=== PATIENT | female | born 1940 | race Caucasian/White ===

== ENCOUNTER 2024-09-03 18:55 | Inpatient (IN) | payer MEDICARE, MEDICAID, SELFPAY ==
--- NOTE | ~2024-09-03 | XR_ITS ---
Portable chest x-ray Comparison: None Clinical History: Weakness Findings: There is probable focal retrocardiac airspace opacity. Right lung clear. No pleural effusi on or pneumothorax. Cardiomediastinal silhouette is unremarkable. Bones and soft tissues are unremar kable. Impression: Focal left lower lobe atelectasis versus pneumonia. Correlate clinically. Reviewed, dictated and finalized at [facility]. NEERING CONSULTANT Impression: Focal left lower lobe atelectasis versus pneumonia. Correlate clinically.
--- NOTE | ~2024-09-03 | CT_ITS ---
History: Fall PROCEDURE: CT head without contrast. COMPARISON: None TECHNIQUE: Axial imaging of the head performed from the skull base to the vertex without IV contrast. Sagittal a nd coronal reformations obtained. DLP: 681 mGy-cm FINDINGS: The ventricles are normal in size, shape and position. There is no mass, mass effect or midline shift. Decreased attenuation within the right occipital lobe, in the distribution of the posterior cerebral artery, suggesting prior cerebral infarction. Decreased attenuation within the periventricular white matter, most commonly seen in microvascular is chemic disease (in a patient of this age). There is no abnormal extra-axial fluid collection or acute or subacute intracranial hemorrhage. Mucoperiosteal thickening within the left maxillary sinus. Remaining paranasal sinuses are otherwise unremarkable. The mastoid air cells are well aerated. There acute displaced fractures within the overlying cranium. Impression: No acute intracranial hemorrhage or suspicious mass effect. Findings suggesting prior cerebral infarction within the distribution of the right posterior cerebral artery, as detailed above. Inflammatory sinus disease. Reviewed, dictated and finalized at location A. ER STACKER DRIVER Impression: No acute intracranial hemorrhage or suspicious mass effect. Findings suggesting prior cerebral infarction within the distribution of the ri ght posterior cerebral artery, as detailed above. Inflammatory sinus disease.
--- NOTE | ~2024-09-03 | MR_ITS ---
EXAMINATION: MR brain/brain stem wo/w con DATE: 09/04/2024 15:55 INDICATION: Cerebrovascular accident. TECHNIQUE: Magnetic resonance imaging (MRI) of the brain and brainstem was performed without and with 15 mL MultiHance intravenous contrast. COMPARISON: Head CT 09/03/2024 FINDINGS: There is an acute infarct in the right thalamus. There is an acute infarct involving the ri ght temporal occipital region. There is an old microhemorrhage in the left parietal lobe deep white m atter. There are scattered areas of nonspecific increased T2-weighted signal intensity in the cerebra l white matter, which is within normal limits for the patient's age. There is no abnormal mass lesion . The ventricles are normal in size. There are likely changes of ocular lens replacement surgeries. T here is mucosal thickening in left maxillary sinus. The mastoid air cells are normal. IMPRESSION: 1. Acute infarcts involving the right thalamus and right temporal occipital region. Reviewed, dictated and finalized at location A. MOSTAT MACHINE TENDER IMPRESSION: 1. Acute infarcts involving the right thalamus and right temporal occipital reg ion.
[2024-09-03 19:02] VITALS: BP 132/56; PULSE 56; RESP 16; TEMP 36.5; O2SAT 96
--- NOTE | 2024-09-03 21:33 | ED_ITS ---
HPI - Fall General Chief Complaint: Fall Stated Complaint: fall Time Seen by Provider: 09/03/24 21:22 History of Present Illness HPI Narrative: 84-year-old female presented to the emergency department for evaluation for having head injury. Daughter states the patient was evaluated yesterday at [facility] emergency department for generalized weakness. Daughter felt that the patient did have a shuffling gait yesterday and this is atypical for. Patient was then evaluated [facility] and was also discharged to home. Today the patient was supposed to be using a walker to ambulate but then had a ground level fall and struck her head on the toilet. Patient denies any loss of consci ousness. Patient does take Eliquis. Patient had initially been complaining of left arm pain but at time of evaluation patient denies any pain or complaint. Related Data Allergies Allergy/AdvReac Type Severity Reaction Status Date / Time hydrocodone Allergy Unknown Verified 09/04/24 01:28 Penicillins Allergy Unknown Verified 09/04/24 01:16 Review of Systems Review of Systems: All systems reviewed & are unremarkable except as noted in HPI and below Exam Narrative: APPEARANCE: Well appearing, no pain, no distress, well-nourished. HEAD: normocephalic, atraumatic. EYES: PERRLA/EOMI, conjunctivae clear. NOSE: Normal no drainage NECK: Supple. No adenopathy, no masses. RESPIRATORY: Airway patent, respirations nonlabored. Clear to auscultation bilaterally, no rales, rhonchi, wheezing. CARDIOVASCULAR: Regular rate and rhythm without murmurs rubs or gallops. ABDOMINAL: Soft, nontender, nondistended, normal bowel sounds MUSCULOSKELETAL: Moves all extremities. Strength/ROM intact, No edema, No calf tenderness. NEURO: Alert. Cranial nerves II through XII intact. Drift on the left. Good strength. Poor ambulation SKIN: Warm, dry. Normal Color Course Vital Signs Vital signs: Vital Signs Temperature 97.7 F 09/03/24 19:02 Pulse Rate 56 L 09/03/24 19:02 Respiratory Rate 16 09/03/24 19:02 Blood Pressure 132/56 L 09/03/24 19:02 Pulse Oximetry 96 09/03/24 19:02 Temperature 97.7 F 09/03/24 19:02 Pulse Rate 56 L 09/03/24 19:02 Respiratory Rate 16 09/03/24 19:02 Blood Pressure 132/56 L 09/03/24 19:02 Pulse Oximetry 96 09/03/24 19:02 MDM - Fall MDM Narrative Medical decision making narrative: 84-year-old female present to the emergency department for evaluation for a ground level fall. Patient is afebrile with no leukocytosis and hemoglobin of 12.0. Patient has no significant abnormalities on her CMP. Patient does have a creatinine of 1.4 but patient's baseline kidney function is not known. Patient was positive for nitrates positive for leukocyte esterase and high bacteria. Urine culture was ordered patient was started on antibiotics. Patient was neg ative for influenza RSV and for COVID. Head CT was negative for acute intracranial abnormality, but was concerning for cerebellar infarct. With patient's ambulation issues being acute of was concerned about subacute infarct. I discussed the case with Neurology and they will see the patient as consult. I discussed case with hospitalist patient was accepted for admission. Differential Diagnosis Differential diagnosis: Likely other (Head injury, urinary tract infection, COVID, RSV, influenza) Lab Data Attestation: I reviewed the patient's lab results. 09/03/24 22:05 09/03/24 22:05 Labs: Lab Results 09/03/24 09/03/24 09/03/24 Range/Units 22:05 22:29 23:56 WBC 9.4 (4.5-10.0) K/mm3 RBC 3.99 L (4.2-5.4) M/mm3 Hgb 12.0 (12.0-15.0) g/dL Hct 40.5 (37.0-47.0) % MCV 101.5 H (80-100) fl MCH 30.1 (26-34) pg MCHC 29.6 L (32-36) g/dl RDW 13.3 (11.5-14.5) % Plt Count 146 L (150-375) k/mm3 MPV 11.4 H (7.4-10.4) fl Immature Gran % (Auto) 0.4 (0-0.5) % Neut % (Auto) 63.1 (45.5-73.1) % Lymph % (Auto) 25.0 (18.3-44.2) % [place] % (Auto) 7.8 (2.6-8.5) % Eos % (Auto) 2.8 (0-4.4) % Baso % (Auto) 0.9 (0.2-1.2) % Lymph # (Auto) 2.34 (0.9-3.2) K/mm3 [place] # (Auto) 0.7 H (0.1-0.6) K/mm3 Eos # (Auto) 0.3 (0-0.3) K/mm3 Baso # (Auto) 0.1 (0.0-0.1) K/mm3 Abs Immat Gran (auto) 0.04 H (0.00-0.031) K/mm3 Absolute Neuts (auto) 5.9 (1.3-6.7) K/mm3 Absolute Nucleated RBC 0.000 (0.0-0.012) K/mm3 Nucleated RBC % 0.0 (0.0-0.2) % Platelet Estimate Adequate (Adequate) Hypochromasia 1+ Schistocytes None seen PT 18.5 H (11.1-14.7) Seconds INR 1.5 APTT 34.5 (22.3-36.8) Seconds Sodium 137 (137-145) mmol/L Potassium 4.8 (3.4-5.0) mmol/L Chloride 101 (98-107) mmol/L Carbon Dioxide 27 (22-30) mmol/L Anion Gap 9 (4-12) mmol/L BUN 47 H (7-17) mg/dL Creatinine 1.40 H (0.7-1.0) mg/dL Estim Creat Clear Calc Not Reportable Estimated GFR 36 L (59 - ) Glucose 132 H (65-110) mg/dL Calcium 9.1 (8.4-10.2) mg/dL Total Bilirubin 0.8 (0.2-1.3) mg/dL AST 35 (14-36) U/L ALT 26 (6-35) U/L Alkaline Phosphatase 79 (38-126) U/L Total Protein 8.0 (6.3-8.2) g/dL Albumin 3.9 (3.5-5.1) g/dL Urine Color Dark yellow (Yellow) Urine Appearance Clear (Clear) Urine pH 5.0 (5.0-9.0) Ur Specific [place] 1.023 (1.001-1.035) Urine Protein 1+ H (Negative) mg/dL Urine Glucose (UA) Negative (Negative) mg/dL Urine Ketones Trace H (Negative) mg/dL Ur Blood (Man) Negative (Negative) Urine Nitrate Positive H (Negative) Urine Bilirubin Negative (Negative) Urine Urobilinogen 0.2 (<2.0) mg/dL Add Ur Microanalysis Reviewed Leukocyte Esterase Rfl 1+ H (Negative) SHAHRZAD/UL Urine RBC 0-2 (0-2) /hpf Urine WBC 0-5 (0-3) /hpf Ur Squamous Epith Cells Occasional (Few) /hpf Urine Bacteria 4+ H /hpf Urine Casts 3-5 Influenza A (RT-PCR) Negative (Negative) Influenza B (RT-PCR) Negative (Negative) RSV (RT-PCR) Negative (Negative) SARS-CoV-2 RNA (RT-PCR) Negative (Negative) Imaging Data Radiologist's impression: Impressions Head CT 09/03/24 21:58 Impression: No acute intracranial hemorrhage or suspicious mass effect. Findings suggesting prior cerebral infarction within the distribution of the right posterior cerebral artery, as detailed above. Inflammatory sinus disease. Discharge Plan Discharge Clinical Impression: UTI (urinary tract infection), Gait disturbance, Cerebellar infarct Patient Disposition: Still a Patient Condition: Serious Follow-up/Referrals: PHYSICIAN NOT ON STAFF,NONSTAFF [Non-Staff] -
[2024-09-03 22:11] LABS: Basophils Absolute Auto 0.1 K/mm3 (0.0-0.1); Basophils Percent Auto 0.9 % (0.2-1.2); Eosinophils Absolute Auto 0.3 K/mm3 (0-0.3); Eosinophils Percent Auto 2.8 % (0-4.4); Hematocrit 40.5 % (37.0-47.0); Immature Granulocyte Absolute 0.04 K/mm3 (0.00-0.031); Immature Granulocyte Percent A 0.4 % (0-0.5); Lymphocytes Absolute Auto 2.34 K/mm3 (0.9-3.2); Mean Corpuscular HGB Conc 29.6 g/dl (32-36); Mean Corpuscular Hemoglobin 30.1 pg (26-34); Mean Corpuscular Volume 101.5 fl (80-100); Mean Platelet Volume 11.4 fl (7.4-10.4); Monocytes Absolute Auto 0.7 K/mm3 (0.1-0.6); Monocytes Percent Auto 7.8 % (2.6-8.5); Neutrophils Absolute Auto 5.9 K/mm3 (1.3-6.7); Neutrophils Percent Auto 63.1 % (45.5-73.1); Platelet Count Result 146 k/mm3 (150-375); Red Blood Count 3.99 M/mm3 (4.2-5.4); Red Cell Distribution Width 13.3 % (11.5-14.5); White Blood Count 9.4 K/mm3 (4.5-10.0)
[2024-09-03 22:23] LABS: Alanine Aminotransferase 26 U/L (6-35); Albumin Level 3.9 g/dL (3.5-5.1); Alkaline Phosphatase 79 U/L (38-126); Anion Gap 9 mmol/L (4-12); Aspartate Amino Transferase 35 U/L (14-36); Bilirubin,Total 0.8 mg/dL (0.2-1.3); Blood Urea Nitrogen 47 mg/dL (7-17); Calcium 9.1 mg/dL (8.4-10.2); Carbon Dioxide 27 mmol/L (22-30); Chloride 101 mmol/L (98-107); Estimated Glomerular Filt Rate 36; Glucose 132 mg/dL (65-110); Potassium 4.8 mmol/L (3.4-5.0); Sodium 137 mmol/L (137-145)
[2024-09-03 22:24] LABS: Hypochromasia 1+; Platelet Estimate Adequate (Adequate); Schistocytes None Seen
[2024-09-03 22:47] LABS: Influenza A QL RT-PCR Negative (Negative); Influenza B QL RT-PCR Negative (Negative); RSV RNA, RT-PCR Negative (Negative); SARS-CoV-2 RNA PCR Negative (Negative)
[2024-09-03 22:49] LABS: INR 1.5; Prothrombin Time 18.5 Seconds (11.1-14.7)
[2024-09-03 22:51] LABS: Partial Thromboplastin Time 34.5 Seconds (22.3-36.8)
[2024-09-04] VITALS (10 sets, daily range): BP systolic 103–165; BP diastolic 52–78; PULSE 62–85; RESP 16–20; TEMP 36.4–37; O2SAT 92–100; BMI 31.0
[2024-09-04 00:20] LABS: Add Urine Microscopic? YES; Appearance Urine Clear (Clear); Bacteria Urine 4+ /hpf; Bilirubin Urine Negative (Negative); Blood Urine Negative (Negative); Color Urine Dark Yellow (Yellow); Glucose Urine UA Negative (Negative); Ketones Urine Trace mg/dL (Negative); Leukocyte Esterase Ur 1+ LEU/UL (Negative); Need Manual Microscopic Reviewed; Nitrate Urine Positive (Negative); Protein Urine 1+ mg/dL (Negative); RBC Urine 0-2 /hpf (0-2); Specific Grav Ur 1.023 (1.001-1.035); Squamous Epithelial Cell Urine Occasional /hpf (Few); Urobilinogen Urine 0.2 mg/dL (<2.0); WBC Urine 0-5 /hpf (0-3)
--- NOTE | 2024-09-04 01:18 | PM.IMHP ---
H&P: HPI History of Present Illness Date/Time: 09/04/24 01:18 Chief Complaint: weakness Narrative: This is an 84-year-old female with past medical history significant for obesity, dementia, hypertension, Parkinson's. Patient was brought to the emergency room due to gait disturbance, generalized weakness. Most of the history has been obtained from daughter who is at bedside. Preliminary workup was significant for CT of the head with possible stroke of the right posterior cerebral artery. Patient was also found to have urinary tract infection. PROCEDURE: CT head without contrast. COMPARISON: None TECHNIQUE: Axial imaging of the head performed from the skull base to the vertex without IV contrast. Sagittal and coronal reformations obtained. DLP: 681 mGy-cm FINDINGS: The ventricles are normal in size, shape and position. There is no mass, mass effect or midline shift. Decreased attenuation within the right occipital lobe, in the distribution of the posterior cerebral artery, suggesting prior cerebral infarction. Decreased attenuation within the periventricular white matter, most commonly seen in microvascular ischemic disease (in a patient of this age). There is no abnormal extra-axial fluid collection or acute or subacute intracranial hemorrhage. Mucoperiosteal thickening within the left maxillary sinus. Remaining paranasal sinuses are otherwise unremarkable. The mastoid air cells are well aerated. There acute displaced fractures within the overlying cranium. Impression: No acute intracranial hemorrhage or suspicious mass effect. Findings suggesting prior cerebral infarction within the distribution of the right posterior cerebral artery, as detailed above. Inflammatory sinus disease. Review of Systems Review of Systems: ROS unobtainable: Yes unobtainable due to mental status PMFSH Social History Social History Smoking status: Former smoker Do You Feel Safe in your Home?: Yes Lack of Transportation: No Lack of Food: Never True Current Housing: I Have Housing Concerned About Future Housing: No Difficulty Paying Gas/Electric Bills: No Difficulty Paying for Meds: No Currently Unemployed: No Education: High School Diploma/GED Difficulty w/ Childcare or Family Care: No Spiritual care concerns: No Meds Home Medications and Allergies Home Medications Medication Instructions Recorded Confirmed Type PreserVision AREDS 1 tablet PO BID 09/04/24 09/04/24 History apixaban 5 mg tablet (Eliquis) 5 mg PO BID 09/04/24 09/04/24 History cyanocobalamin (vitamin B-12) 1,000 mcg DAILY 09/04/24 09/04/24 History 1,000 mcg/mL injection syringe donepezil 5 mg tablet (Aricept) 5 mg PO HS 09/04/24 09/04/24 History gabapentin 300 mg capsule 300 mg PO TID 09/04/24 09/04/24 History guaifenesin 100 mg/5 mL oral liquid 200 mg PO Q4H PRN Cough 09/04/24 09/04/24 History hydrochlorothiazide 12.5 mg tablet 12.5 mg PO DAILY 09/04/24 09/04/24 History ibuprofen 200 mg tablet 200 mg PO Q8H PRN Pain 09/04/24 09/04/24 History loperamide 2 mg tablet 2 mg PO Q4H PRN Diarrhea 09/04/24 09/04/24 History losartan 25 mg tablet 25 mg PO BID 09/04/24 09/04/24 History lovastatin 20 mg tablet 20 mg PO QPM 09/04/24 09/04/24 History omega-3 fatty acids-vitamin E 1 cap PO DAILY 09/04/24 09/04/24 History 1,000 mg capsule omeprazole 20 mg capsule,delayed 20 mg PO DAILY 09/04/24 09/04/24 History release Allergies Allergy/AdvReac Type Severity Reaction Status Date / Time hydrocodone Allergy Unknown Verified 09/04/24 01:28 Penicillins Allergy Unknown Verified 09/04/24 01:16 Vital Signs Vital Signs - 24 hr 09/03/24 19:02 Temperature 97.7 F Pulse Rate 56 L Respiratory Rate 16 Blood Pressure 132/56 L Pulse Oximetry 96 Exam Narrative: lying in stretcher Const: General: comfortable, no acute distress, well developed, alert, awake, ill appearing and obese Nutritional Appearance: obese Orientation/consciousness: oriented to person and oriented to place HENMT: Head: normal to inspection, normocephalic and atraumatic Ears: hearing grossly normal bilaterally Face/Nose/Sinus: normal facial exam Face and sinus: normal facial exam Eyes: General: appearance normal, both eyes and all related structures Pupils: Equal, round and reactive pupils present EOM: EOMs intact bilaterally Neck: Neck: full ROM, no lymphadenopathy and no JVD Thyroid: thyroid normal Lymphatic: no lymphadenopathy noted Resp: Effort & Inspection: normal respiratory effort and able to speak in complete sentences Auscultation: clear to auscultation bilaterally Cardio: Jugular venous distension: no JVD Rate: regular rate Rhythm: regular rhythm Heart sounds: S1 normal heart sound present and S2 normal heart sound present GI: GI Palp: Yes Soft to palpation and Yes No hepatosplenomegaly present : General: Yes deferred Skin: Rashes: no rashes Wounds: no wounds Neuro: General: oriented to person, oriented to place and CN's II-XI intact bilaterally Cranial nerves: Yes CN's II-XII intact bilaterally and Yes Equal, round and reactive pupils present Cognition (Neuro): normal cognition Speech: normal speech Gait exam (Neuro): Unable to assess gait Motor exam (neuro): 5/5 motor strength present throughout Extrem: General: normal to inspection, full ROM, no joint enlargement and no pedal edema H&P: Results Labs Labs: Short CBC 09/03/24 Range/Units 22:05 WBC 9.4 (4.5-10.0) K/mm3 Hgb 12.0 (12.0-15.0) g/dL Hct 40.5 (37.0-47.0) % Plt Count 146 L (150-375) k/mm3 BMP 09/03/24 22:05 Sodium 137 Potassium 4.8 Chloride 101 Carbon Dioxide 27 BUN 47 H Creatinine 1.40 H Glucose 132 H Calcium 9.1 Liver Function 09/03/24 Range/Units 22:05 Total Bilirubin 0.8 (0.2-1.3) mg/dL AST 35 (14-36) U/L ALT 26 (6-35) U/L Alkaline Phosphatase 79 (38-126) U/L Albumin 3.9 (3.5-5.1) g/dL Urine 09/03/24 Range/Units 23:56 Urine Color Dark yellow (Yellow) Urine Appearance Clear (Clear) Urine pH 5.0 (5.0-9.0) Ur Specific [place] 1.023 (1.001-1.035) Urine Protein 1+ H (Negative) mg/dL Urine Glucose (UA) Negative (Negative) mg/dL Assessment and Plan Assessment and plan (1) Stroke: Code(s): I63.9 - Cerebral infarction, unspecified Status: Acute Assessment and Plan: CT of the head with possible right posterior cerebral artery stroke MRI of the brain in the morning (2) Weakness: Code(s): R53.1 - Weakness Status: Acute Assessment and Plan: PT OT (3) Parkinson disease: Code(s): G20.A1 - Parkinson's disease without dyskinesia, without mention of fluctuations Status: Acute Assessment and Plan: Not on levodopa carbidopa (4) Gait disturbance: Code(s): R26.9 - Unspecified abnormalities of gait and mobility Status: Acute Assessment and Plan: PT OT Hospitalist MIPS Advance Care Plan I have confirmed that the patient's Advanced Care Plan is present, code status is documented, or surrogate decision maker is listed in patient medical record.: Yes Medication Reconciliation I have utilized all available resources to obtain, update and review the patients current medications (includes all prescriptions, OTC, herbals, cannabis, and nutritional supplements).: Yes
[2024-09-04] MEDS: CEPHALEXIN 500 MG CAPSULE PO (01:24)
[2024-09-04] MEDS: ASPIRIN 81 MG CHEWABLE TABLET 324 MG PO (01:31)
--- NOTE | 2024-09-04 03:04 | PC.NURSE ---
Pt moved from room H3 to room 1 and placed on hospital bed. Pt VS updated, belongings at bedside, and call light within reach.
--- NOTE | 2024-09-04 04:24 | PC.NURSE ---
Lipid panel retimed for 10am, 12 hours after inital bloodwork. Order placed for NPO breakfast and heart healthy lunch. Pt made aware of need for fasting.
--- NOTE | 2024-09-04 07:56 | PC.NURSE ---
Assumed care of pt. Pt remains NPO for lipid panel. Pt resting arouses easily.
--- NOTE | 2024-09-04 09:00 | PC.NURSE ---
This patient, Ju Meyers, was admitted to Virtual Bed 3rd Floor-1. Patient/family oriented to hospital policies and general routines including ID bracelet, bed and alarms, visiting hours, pain management, procedures, bathroom and other care routines, personal items, smoking policy, room service/diet, and visiting hours. Information on how to activate the Rapid Response Team has been discussed. Patient/Family are encouraged to report perceived risks to care and to ask questions if they do not understand what they are told or what they should do.
--- NOTE | 2024-09-04 09:23 | PM.IMPN ---
Progress Note: A&P Assessment and Plan (1) Stroke: Code(s): I63.9 - Cerebral infarction, unspecified Status: Acute Assessment and Plan: Recent complaints of impaired gait and fall. Patient was seen at two different OSH for generalized weakness. CT head showed no acute intracranial hemorrhage or suspicious mass effect. There are findings suggesting prior cerebral infarct within the distribution of the right posterior cerebral artery. Would do CTA head and neck but CrCl is not reportable, GFR 36, Cr 1.4 Brain MRI pending Echo ordered and pending Lipid panel 89, hemoglobin A1c 6.5% Changed from lovastatin 20 mg to atorvastatin 40 mg, Eliquis to continue Speech therapy to evaluate swallow. Diet to follow Neurology has been consulted, recs are appreciated (2) Gait disturbance: Code(s): R26.9 - Unspecified abnormalities of gait and mobility Status: Acute Assessment and Plan: PT, OT have been consulted Fall precautions (3) UTI (urinary tract infection): Code(s): N39.0 - Urinary tract infection, site not specified Status: Acute Assessment and Plan: UA concerning for infection with positive nitrates and leukocyte esterase with 4+ bacteria. Urine culture pending Patient received dose of Keflex in the emergency room Started on Rocephin IV Subjective Date/time seen: 09/04/24 09:23 Interval history: Patient is sitting up in the chair no acute distress. She knows that she is at a hospital that she thinks she is at [facility] which is fair she was there yesterday. She does not know the month but she has that Blayne is the president. She does not know why she is at hospital. She says it is hard to lift her left arm. She declines headache, dizziness, chest pain, shortness a breath, abdominal pain, nausea, vomiting, diarrhea, constipation, difficulty with urination, or dysuria. Review of Systems Review of Systems: All systems reviewed & are unremarkable except as noted in HPI and below Exam Narrative: General: appears comfortable, in no acute distress Respiratory: breathing is unlabored with even chest rise/fall, lungs are clear without wheezing, rhonchi, and crackles Cardiovascular: Rate and rhythm regular, normal s1s2, no murmur Abdomen: Soft, round, non-tender, active bowel sounds Extremities: No cyanosis, edema, clubbing. Pulses 2/2. Neuro: A&O x 2-3, left upper extremity drift with slightly weakened business process consultant, left lower extremity weakness, PERRLA, Skin: Warm, dry, intact Objective Data Vital Signs Vital Signs: Vital Signs - 24 hr 09/03/24 19:02 09/04/24 03:05 09/04/24 05:37 Temperature 97.7 F Pulse Rate 56 L 64 63 Respiratory Rate 16 16 16 Blood Pressure 132/56 L 103/67 120/52 L Pulse Oximetry 96 100 97 09/04/24 06:16 09/04/24 07:59 09/04/24 08:44 Temperature 97.6 F 97.8 F Pulse Rate 66 65 68 Respiratory Rate 16 16 16 Blood Pressure 135/66 139/59 L 139/78 Pulse Oximetry 99 96 97 Meds/Results Medications: Active Medications Generic Name Dose Route Start Last Admin Trade Name Freq PRN Reason Stop Dose Admin Apixaban 5 mg 09/04/24 09:00 Apixaban 5 Mg Tablet PO Q12HR VIRAJ Donepezil HCl 5 mg 09/04/24 21:00 Donepezil Hcl 5 Mg Tablet PO HS VIRAJ Gabapentin 300 mg 09/04/24 09:00 Gabapentin 300 Mg Capsule PO TID VIRAJ Lovastatin 20 mg 09/04/24 18:00 Lovastatin 20 Mg Tablet PO QPM [facility] Multivitamins/Minerals 1 tablet 09/04/24 09:00 Opti-Gen Tab PO 10/04/24 08:59 BID [facility] Pantoprazole Sodium 40 mg 09/04/24 09:00 Pantoprazole 40 Mg Tablet PO 10/04/24 08:59 DAILY [facility] Radiology Results: ITS Impressions Head CT 09/03/24 21:58 Impression: No acute intracranial hemorrhage or suspicious mass effect. Findings suggesting prior cerebral infarction within the distribution of the right posterior cerebral artery, as detailed above. Inflammatory sinus disease. Chest X-Ray 09/04/24 06:03 Impression: Focal left lower lobe atelectasis versus pneumonia. Correlate clinically. Labs Labs: Laboratory Results - last 24 hr 09/03/24 09/03/24 09/03/24 22:05 22:29 23:56 WBC 9.4 RBC 3.99 L Hgb 12.0 Hct 40.5 MCV 101.5 H MCH 30.1 MCHC 29.6 L RDW 13.3 Plt Count 146 L MPV 11.4 H Immature Gran % (Auto) 0.4 Neut % (Auto) 63.1 Lymph % (Auto) 25.0 [place] % (Auto) 7.8 Eos % (Auto) 2.8 Baso % (Auto) 0.9 Lymph # (Auto) 2.34 [place] # (Auto) 0.7 H Eos # (Auto) 0.3 Baso # (Auto) 0.1 Abs Immat Gran (auto) 0.04 H Absolute Neuts (auto) 5.9 Absolute Nucleated RBC 0.000 Nucleated RBC % 0.0 Platelet Estimate Adequate Hypochromasia 1+ Schistocytes None seen PT 18.5 H INR 1.5 APTT 34.5 Sodium 137 Potassium 4.8 Chloride 101 Carbon Dioxide 27 Anion Gap 9 BUN 47 H Creatinine 1.40 H Estim Creat Clear Calc Not Reportable Estimated GFR 36 L Glucose 132 H Calcium 9.1 Total Bilirubin 0.8 AST 35 ALT 26 Alkaline Phosphatase 79 Total Protein 8.0 Albumin 3.9 Triglycerides Cancelled Cholesterol Cancelled LDL Cholesterol Direct Cancelled HDL Direct Cancelled Urine Color Dark yellow Urine Appearance Clear Urine pH 5.0 Ur Specific [place] 1.023 Urine Protein 1+ H Urine Glucose (UA) Negative Urine Ketones Trace H Ur Blood (Man) Negative Urine Nitrate Positive H Urine Bilirubin Negative Urine Urobilinogen 0.2 Add Ur Microanalysis Reviewed Leukocyte Esterase Rfl 1+ H Urine RBC 0-2 Urine WBC 0-5 Ur Squamous Epith Cells Occasional Urine Bacteria 4+ H Urine Casts 3-5 Influenza A (RT-PCR) Negative Influenza B (RT-PCR) Negative RSV (RT-PCR) Negative SARS-CoV-2 RNA (RT-PCR) Negative Quality VTE Prophylaxis VTE prophylaxis: pharmacologic ordered
[2024-09-04 09:52] LABS: Basophils Absolute Auto 0.1 K/mm3 (0.0-0.1); Basophils Percent Auto 0.7 % (0.2-1.2); Eosinophils Absolute Auto 0.3 K/mm3 (0-0.3); Eosinophils Percent Auto 4.6 % (0-4.4); Hematocrit 34.5 % (37.0-47.0); Hemoglobin 11.3 g/dL (12.0-15.0); Immature Granulocyte Absolute 0.03 K/mm3 (0.00-0.031); Immature Granulocyte Percent A 0.4 % (0-0.5); Lymphocytes Absolute Auto 1.64 K/mm3 (0.9-3.2); Lymphocytes Percent Auto 23.8 % (18.3-44.2); Mean Corpuscular HGB Conc 32.8 g/dl (32-36); Mean Corpuscular Hemoglobin 31.3 pg (26-34); Mean Corpuscular Volume 95.6 fl (80-100); Mean Platelet Volume 11.3 fl (7.4-10.4); Monocytes Absolute Auto 0.6 K/mm3 (0.1-0.6); Neutrophils Absolute Auto 4.3 K/mm3 (1.3-6.7); Neutrophils Percent Auto 62.5 % (45.5-73.1); Platelet Count Result 132 k/mm3 (150-375); Red Blood Count 3.61 M/mm3 (4.2-5.4); Red Cell Distribution Width 13.3 % (11.5-14.5); White Blood Count 6.9 K/mm3 (4.5-10.0)
--- NOTE | 2024-09-04 10:06 | WPDNEURCNPN ---
Consult date: 09/04/24 HPI: Ju Meyers is a 84 year old female Has been admitted to the hospital through the emergency room for the evaluation of head injury. Patient was reportedly evaluated at [facility] emergency room for complaint of generalized weakness with additional complain of shuffling gait by the daughter subsequently she was evaluated at [facility] and was discharged to her home on the day of visit to this emergency room it was documented that she was using a walker but had a ground level fall and struck her head on the toilet though he did not become unconscious patient does take Eliquis and has been complaining of left upper extremity pain. She is allergic to hydrocodone and penicillins. On initial exam in the emergency room there was no abnormal finding except the drift on the left side. And also noted poor ambulation. Vital signs were normal CBC was normal BMP was with BUN of 47 and creatinine of 1.40 urine were positive for nitrate and 4+ bacteria CT scan of the head was negative for the bleed except findings suggestive of previous stroke in the distribution of the posterior cerebral artery on the right side he was admitted to the hospital for the gait dysfunction with documented cerebellar infarct and urinary tract infection. Subsequently her medications were documented with apixaban 5mg twice a day, donepezil 5mg at night, gabapentin 300mg 3 times a day, hydrochlorothiazide 12.5mg daily, ibuprofen 200mg Q 8hours p.r.n., losartan 25mg twice a day, lovastatin 20mg daily, PMFSH Social History Social History Smoking status: Former smoker Do You Feel Safe in your Home?: Yes Lack of Transportation: No Lack of Food: Never True Current Housing: I Have Housing Concerned About Future Housing: No Difficulty Paying Gas/Electric Bills: No Difficulty Paying for Meds: No Currently Unemployed: No Education: High School Diploma/GED Difficulty w/ Childcare or Family Care: No Spiritual care concerns: No Meds Home Medications and Allergies Home Medications Medication Instructions Recorded Confirmed Type PreserVision AREDS 1 tablet PO BID 09/04/24 09/04/24 History apixaban 5 mg tablet (Eliquis) 5 mg PO BID 09/04/24 09/04/24 History cyanocobalamin (vitamin B-12) 1,000 mcg DAILY 09/04/24 09/04/24 History 1,000 mcg/mL injection syringe donepezil 5 mg tablet (Aricept) 5 mg PO HS 09/04/24 09/04/24 History gabapentin 300 mg capsule 300 mg PO TID 09/04/24 09/04/24 History guaifenesin 100 mg/5 mL oral liquid 200 mg PO Q4H PRN Cough 09/04/24 09/04/24 History hydrochlorothiazide 12.5 mg tablet 12.5 mg PO DAILY 09/04/24 09/04/24 History ibuprofen 200 mg tablet 200 mg PO Q8H PRN Pain 09/04/24 09/04/24 History loperamide 2 mg tablet 2 mg PO Q4H PRN Diarrhea 09/04/24 09/04/24 History losartan 25 mg tablet 25 mg PO BID 09/04/24 09/04/24 History lovastatin 20 mg tablet 20 mg PO QPM 09/04/24 09/04/24 History omega-3 fatty acids-vitamin E 1 cap PO DAILY 09/04/24 09/04/24 History 1,000 mg capsule omeprazole 20 mg capsule,delayed 20 mg PO DAILY 09/04/24 09/04/24 History release Allergies Allergy/AdvReac Type Severity Reaction Status Date / Time hydrocodone Allergy Unknown Verified 09/04/24 01:28 Penicillins Allergy Unknown Verified 09/04/24 01:16 Vital Signs Vital Signs - 24 hr 09/03/24 19:02 09/04/24 03:05 09/04/24 05:37 Temperature 36.5 C Pulse Rate 56 L 64 63 Respiratory Rate 16 16 16 Blood Pressure 132/56 L 103/67 120/52 L Pulse Oximetry 96 100 97 09/04/24 06:16 09/04/24 07:59 09/04/24 08:44 Temperature 36.4 C 36.6 C Pulse Rate 66 65 68 Respiratory Rate 16 16 16 Blood Pressure 135/66 139/59 L 139/78 Pulse Oximetry 99 96 97 Results Labs 09/04/24 09:46 09/03/24 22:05 Labs: Short CBC 09/03/24 09/04/24 Range/Units 22:05 09:46 WBC 9.4 6.9 (4.5-10.0) K/mm3 Hgb 12.0 11.3 L (12.0-15.0) g/dL Hct 40.5 34.5 L (37.0-47.0) % Plt Count 146 L 132 L (150-375) k/mm3 BMP 09/03/24 22:05 Sodium 137 Potassium 4.8 Chloride 101 Carbon Dioxide 27 BUN 47 H Creatinine 1.40 H Glucose 132 H Calcium 9.1 Liver Function 09/03/24 Range/Units 22:05 Total Bilirubin 0.8 (0.2-1.3) mg/dL AST 35 (14-36) U/L ALT 26 (6-35) U/L Alkaline Phosphatase 79 (38-126) U/L Albumin 3.9 (3.5-5.1) g/dL Urine 09/03/24 Range/Units 23:56 Urine Color Dark yellow (Yellow) Urine Appearance Clear (Clear) Urine pH 5.0 (5.0-9.0) Ur Specific [place] 1.023 (1.001-1.035) Urine Protein 1+ H (Negative) mg/dL Urine Glucose (UA) Negative (Negative) mg/dL
[2024-09-04 10:11] LABS: Alanine Aminotransferase 24 U/L (6-35); Albumin Level 3.5 g/dL (3.5-5.1); Alkaline Phosphatase 85 U/L (38-126); Anion Gap 6 mmol/L (4-12); Aspartate Amino Transferase 30 U/L (14-36); Bilirubin,Total 0.9 mg/dL (0.2-1.3); Blood Urea Nitrogen 41 mg/dL (7-17); Calcium 8.9 mg/dL (8.4-10.2); Carbon Dioxide 31 mmol/L (22-30); Chloride 101 mmol/L (98-107); Estimated Glomerular Filt Rate 36; Glucose 127 mg/dL (65-110); Potassium 4.1 mmol/L (3.4-5.0); Sodium 138 mmol/L (137-145)
[2024-09-04 10:46] LABS: Hemoglobin A1C 6.5 % (<5.7)
--- NOTE | 2024-09-04 11:30 | PC.NURSE ---
Patient arrive to 3 medical unit from ER with no IV access.
[2024-09-04 11:41] LABS: Cholesterol 172 mg/dL (0-200); HDL Direct 40 mg/dL; Triglycerides 121 mg/dL (<150)
[2024-09-04 11:52] LABS: LDL Cholesterol Direct 89 mg/dL
--- NOTE | 2024-09-04 12:21 | P.CONNEU_ITS ---
Assessment and Plan Assessment and plan (1) Gait disturbance: Code(s): R26.9 - Unspecified abnormalities of gait and mobility Status: Acute (2) Parkinson disease: Code(s): G20.A1 - Parkinson's disease without dyskinesia, without mention of fluctuations Status: Acute (3) Stroke: Code(s): I63.9 - Cerebral infarction, unspecified Status: Acute Plan 1. 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 Gait dysfunction with recurrent falls 3. History of Parkinson's disease for which patient is not receiving any specific treatment 4. Multifactorial gait dysfunction 5. MRI and echocardiogram at present are pending, patient is already receiving apixaban 5mg twice a day, donepezil 5mg at night for ongoing mild dementia, further adjustment will be made accordingly Consult date: 09/04/24 HPI: Ju Meyers is a 84 year old female has been admitted to the hospital through the emergency room for the evaluation of head trauma. Patient was reportedly evaluatedat [place] emergency room for the complaints of generalized weakness with additional complaints of shuffling gait by the daughter subsequently she was evaluated at [facility] and was discharged to home. On the day of visit to this emergency room it was documented that she was using a walker but had a ground level fall and struck her head on the toilet though she did not become unconscious . Patient has been taking Eliquis and has been complaining of left upper extremity pain. She is allergic to hydrocodone and penicillins. On initial exam in the emergency room there was no abnormal finding except the drift on the left side. And also poor coordination and ambulation. Vital signs were normal CBC was normal BMP was with BUN of 47 and creatinine of 1.40 ,urine was positive for the nitrate and 4+ bacteria ,scan of the head was negative for the bleed except findings suggestive of previous stroke in the distribution of the posterior cerebral artery on the right side ,she was admitted to the hospital for the gait dysfunction with documented cerebellar infarct and urinary infection subsequently her medication were documented with apixaban 5mg twice a day, donepezil 5mg at night, gabapentin 300mg 3 times a day, hydrochlorothiazide 12.5mg daily, ibuprofen 200mg q.8 hours, and losartan 25mg twice a day, lovastatin 20mg daily. Review of Systems Review of Systems: All systems reviewed & are unremarkable except as noted in HPI and below PMFSH Social History Social History Smoking status: Former smoker Do You Feel Safe in your Home?: Yes Lack of Transportation: No Lack of Food: Never True Current Housing: I Have Housing Concerned About Future Housing: No Difficulty Paying Gas/Electric Bills: No Difficulty Paying for Meds: No Currently Unemployed: No Education: High School Diploma/GED Difficulty w/ Childcare or Family Care: No Spiritual care concerns: No Meds Home Medications and Allergies Home Medications Medication Instructions Recorded Confirmed Type PreserVision AREDS 1 tablet PO BID 09/04/24 09/04/24 History apixaban 5 mg tablet (Eliquis) 5 mg PO BID 09/04/24 09/04/24 History cyanocobalamin (vitamin B-12) 1,000 mcg DAILY 09/04/24 09/04/24 History 1,000 mcg/mL injection syringe donepezil 5 mg tablet (Aricept) 5 mg PO HS 09/04/24 09/04/24 History gabapentin 300 mg capsule 300 mg PO TID 09/04/24 09/04/24 History guaifenesin 100 mg/5 mL oral liquid 200 mg PO Q4H PRN Cough 09/04/24 09/04/24 History hydrochlorothiazide 12.5 mg tablet 12.5 mg PO DAILY 09/04/24 09/04/24 History ibuprofen 200 mg tablet 200 mg PO Q8H PRN Pain 09/04/24 09/04/24 History loperamide 2 mg tablet 2 mg PO Q4H PRN Diarrhea 09/04/24 09/04/24 History losartan 25 mg tablet 25 mg PO BID 09/04/24 09/04/24 History lovastatin 20 mg tablet 20 mg PO QPM 09/04/24 09/04/24 History omega-3 fatty acids-vitamin E 1 cap PO DAILY 09/04/24 09/04/24 History 1,000 mg capsule omeprazole 20 mg capsule,delayed 20 mg PO DAILY 09/04/24 09/04/24 History release Allergies Allergy/AdvReac Type Severity Reaction Status Date / Time hydrocodone Allergy Unknown Verified 09/04/24 01:28 Penicillins Allergy Unknown Verified 09/04/24 01:16 Vital Signs Vital Signs - 24 hr 09/03/24 19:02 09/04/24 03:05 09/04/24 05:37 Temperature 36.5 C Pulse Rate 56 L 64 63 Respiratory Rate 16 16 16 Blood Pressure 132/56 L 103/67 120/52 L Pulse Oximetry 96 100 97 Oxygen Delivery 09/04/24 06:16 09/04/24 07:59 09/04/24 08:44 Temperature 36.4 C 36.6 C Pulse Rate 66 65 68 Respiratory Rate 16 16 16 Blood Pressure 135/66 139/59 L 139/78 Pulse Oximetry 99 96 97 Oxygen Delivery 09/04/24 09:15 09/04/24 11:18 Temperature 36.8 C Pulse Rate 65 Respiratory Rate 20 Blood Pressure 165/68 H Pulse Oximetry 95 Oxygen Delivery Room Air Exam Narrative: Revealed her to be awake alert cooperative in no obvious acute distress, head was normocephalic no cranial bruit, ear nose throat examination were normal, neck was supple with no cervical bruit no thyromegaly no lymphadenopathy, heart was regular lungs were clear to auscultation, neurological examination revealed her to be awake alert cooperative in no obvious acute distress, he was somewhat slow in responding but her speech was not dysphasic not dysarthric pupils were round regular feels the vision full in all 4 quadrants to finger confrontation extraocular movements are full with no nystagmus facial sensation was intact face was symmetric motor examination revealed her to have decreased strength in the upper and lower extremities reflexes were sluggish plantars were questionably up particularly on the right side. She had difficulties in performing [id number] to finger as well as heel to knee to [place]. Results Labs 09/04/24 09:46 09/04/24 09:46 Labs: Short CBC 09/03/24 09/04/24 Range/Units 22:05 09:46 WBC 9.4 6.9 (4.5-10.0) K/mm3 Hgb 12.0 11.3 L (12.0-15.0) g/dL Hct 40.5 34.5 L (37.0-47.0) % Plt Count 146 L 132 L (150-375) k/mm3 BMP 09/03/24 09/04/24 22:05 09:46 Sodium 137 138 Potassium 4.8 4.1 Chloride 101 101 Carbon Dioxide 27 31 H BUN 47 H 41 H Creatinine 1.40 H 1.40 H Glucose 132 H 127 H Calcium 9.1 8.9 Liver Function 09/03/24 09/04/24 Range/Units 22:05 09:46 Total Bilirubin 0.8 0.9 (0.2-1.3) mg/dL AST 35 30 (14-36) U/L ALT 26 24 (6-35) U/L Alkaline Phosphatase 79 85 (38-126) U/L Albumin 3.9 3.5 (3.5-5.1) g/dL Urine 09/03/24 Range/Units 23:56 Urine Color Dark yellow (Yellow) Urine Appearance Clear (Clear) Urine pH 5.0 (5.0-9.0) Ur Specific [place] 1.023 (1.001-1.035) Urine Protein 1+ H (Negative) mg/dL Urine Glucose (UA) Negative (Negative) mg/dL
--- NOTE | 2024-09-04 12:33 | PC.NURSE ---
RN spoke with hospitalist Michaela. Patient needs to remain NPO until speech therapy sees patient.
--- NOTE | 2024-09-04 13:28 | PC.NURSE ---
RN obtained telephone consent for MRI from daughter due to patient having history of confusion. RN also gave update to daughter via telephone on patient status.
--- NOTE | 2024-09-04 14:24 | PCSTNOTE ---
Addendum entered by CANDACE Clemente 09/04/24 14:25: Pt presents with confusion & question if she is at baseline or would require a cognitive linguistic evaluation. Original Note: Please refer to the Bedside Swallow Evaluation in the EMR. Please note, silent aspiration cannot be ruled out at bedside. The above pleasant and cooperative pt was seen for a swallow evaluation at bedside. The pt was already positioned upright in a chair at bedside. She was alert but only oriented x 1. She was able to follow simple commands. She is currently NPO pending swallow evaluation. Pt denies dysphagia. Oral mucosa is normal; natural dentition is in good condition; Oral peripheral exam revealed lingual and labial structures to be normal. She was able to dry swallow (promptly) on command and exhibited a clear vocal quality. She was tested with applesauce, cracker and thin liquids. The liquids were tested in controlled and uncontrolled amounts. The oral stages appeared WNL. No oral leakage or pocketing was noted. During the pharyngeal stage, swallow reflex appeared prompt & laryngeal elevation adequate. No overt s/s of aspiration were exhibited; however, silent aspiration cannot be ruled out at bedside. General impression is normal swallow ability. Recommendation: Regular diet/regular liquids. Thank you for this referral.
--- NOTE | 2024-09-04 15:20 | PC.NURSE ---
Patient off of unit to MRI
[2024-09-04] MEDS: GABAPENTIN 300 MG CAPSULE PO (18:07)
[2024-09-04] MEDS: OPTI-GEN TAB 1 TABLET PO (18:07)
[2024-09-04] MEDS: ATORVASTATIN 40 MG TABLET PO (20:35)
[2024-09-04] MEDS: APIXABAN 5 MG TABLET PO (20:35)
[2024-09-04] MEDS: DONEPEZIL HCL 5 MG TABLET PO (20:35)
[2024-09-05] VITALS (9 sets, daily range): BP systolic 129–149; BP diastolic 44–73; PULSE 60–74; RESP 15–20; TEMP 36.6–36.8; O2SAT 92–95
--- NOTE | 2024-09-05 | ECHO_ITS ---
Patient Info Name: Ju Meyers Age: 84 years : 1940 Gender: Female Ht: 63 in Wt: 169 lbs BSA: 1.87 m2 HR: 67 bpm BP: 129 / 60 mmHg Technical Quality: Fair Exam Date: 09/05/2024 2:21 PM Exam Location: Echo Lab Patient Status: Inpatient Admit Date: 09/05/2024 Staff Ordering Physician: Michaela Baptiste APRN Slp: [facility]. [facility] Attending Provider: Petrona Campbell APRN Referring Physician: Oliva NICOLE; Exam Type: CA echo doppler w bubble study Study Info Indications - Stroke Complete two-dimensional, color flow and Doppler transthoracic echocardiogram is performed with agitated saline. Contrast/Agitated Saline Contrast/Ag. Saline: Agitated Saline Amount: 14.00 ml Existing IV Access: Yes IV Access Condition: patent with no signs of infiltration Summary 1. The left ventricle is normal in size and systolic function. The LVEF is visually estimated to be 65-70%. 2. The right ventricle is normal in size and systolic function. 3. The left atrium is normal in size. 4. The right atrium is normal in size. 5. Agitated saline study did not clearly show any [id number] shunt. Left Ventricle The left ventricle is normal in size and systolic function. The LVEF is visually estimated to be 65-70%. Right Ventricle The right ventricle is normal in size and systolic function. Left Atria The left atrium is normal in size. Right Atria The right atrium is normal in size. Atrial Septum Agitated saline study did not clearly show any [id number] shunt. Aortic Valve The aortic valve is trileaflet and opens well. There is no aortic regurgitation. Pulmonic Valve The pulmonic valve is grossly normal. There is no color Doppler evidence of pulmonic valve regurgitation. Mitral Valve The mitral valve is normal. There is trace mitral regurgitation. Tricuspid Valve The tricuspid valve is normal. There is trace tricuspid regurgitation. Pericardium/Pleural Pericardium is normal in appearance with no evidence for significant pericardial effusion. Inferior Vena Cava Inferior vena cava is not well visualized. Aorta The aortic root diameter measures 2.9 cm. Left Ventricular Outflow Tract Name Value Normal LVOT 2D LVOT Diameter 2.1 cm LVOT Doppler LVOT Peak Gradient 7 mmHg LVOT Mean Gradient 3 mmHg LVOT VTI 27 cm LVOT VTI/AV VTI Ratio 0.9 LVOT Stroke Volume 93 ml LVOT CO 6.8 l/min LVOT CI 3.7 l/min/m2 Pulmonic Valve Name Value Normal PV Doppler PV Peak Gradient 5 mmHg Mitral Valve Name Value Normal MV Doppler MV Decel [place] 297 cm/s2 MV PHT 67 ms MV Area (PHT) 3.3 cm2 4.0-5.0 MV Diastolic Function MV E Peak Velocity 68 cm/s MV A Peak Velocity 104 cm/s MV E/A 0.7 MV Decel Time 230 ms Tricuspid Valve Name Value Normal TV Regurgitation Doppler TR Peak Velocity 133 cm/s TR Peak Gradient 6 mmHg Aorta Name Value Normal Ascending Aorta Ao Root Diameter (MM) 2.9 cm Ao Root Diam Index (MM) 1.6 cm/m2 Aortic Valve Name Value Normal AV Doppler AV Peak Velocity 159 cm/s AV Peak Gradient 10 mmHg AV Mean Gradient 5 mmHg AV VTI 30 cm AV Area (Cont Eq VTI) 3.1 cm2 >=3.0 AV Area (Cont Eq [place]) 2.8 cm2 AV Regurgitation 2D LVOT Area 3.4 cm2 Ventricles Name Value Normal LV Dimensions 2D/MM IVS Diastolic Thickness (2D) 0.9 cm 0.6-1.0 IVS Diastole Thickness (MM) 1.0 cm 0.6-0.9 LVID Diastole (2D) 3.8 cm 3.8-5.2 LVID Diastole (MM) 4.7 cm 3.8-5.2 LVIW Diastolic Thickness (2D) 1.0 cm 0.6-0.9 LVIW Diastolic Thickness (MM) 0.9 cm 0.6-0.9 LVID Systole (2D) 2.0 cm 2.2-3.5 LVID Systole (MM) 3.5 cm 2.2-3.5 LVOT Diameter 2.1 cm LV Mass (2D Cubed) 107.08 g 67.00-162.00 LV Mass Index (2D Cubed) 57 g/m2 43-95 Relative Wall Thickness (2D) 0.51 LV Mass (MM Cubed) 145.96 g 67.00-162.00 LV Mass Index (MM Cubed) 78 g/m2 43-95 Relative Wall Thickness (MM) 0.38 LV Fractional Shortening/Ejection Fraction 2D/MM LV Fractional Shortening (2D) 47 % 27-45 LV Fractional Shortening (MM) 24 % 27-45 LV EF (MM Teicholz) 48 % 54-74 LV EF (2D Teicholz) 79 % 54-74 LV Diastolic Volume (4C MOD) 54 ml LV EF (4C MOD) 79 % LV Diastolic Volume (2C MOD) 39 ml LV EF (2C MOD) 71 % LV Diastolic Volume (BP MOD) 47 ml 46-106 LV Diastolic Volume Index (BP MOD) 25 ml/m2 29-61 LV Systolic Volume (BP MOD) 13 ml 14-42 LV Systolic Volume Index (BP MOD) 7 ml/m2 8-24 LV EF (BP MOD) 74 % 54-74 LV Diastolic Length (4C) 6.7 cm LV Systolic Length (4C) 4.7 cm LV Stroke Volume (4C MOD) 43 ml Atria Name Value Normal LA Dimensions LA Dimension (MM) 2.0 cm 2.7-3.8 LA Volume (4C A-L) 27 ml LA Volume (BP A-L) 29 ml RA Dimensions RA Area (4C) 9.8 cm2 <=18.0 Report Signatures
[2024-09-05 05:32] LABS: Basophils Absolute Auto 0.1 K/mm3 (0.0-0.1); Basophils Percent Auto 0.9 % (0.2-1.2); Eosinophils Absolute Auto 0.3 K/mm3 (0-0.3); Eosinophils Percent Auto 4.6 % (0-4.4); Hematocrit 32.5 % (37.0-47.0); Hemoglobin 10.5 g/dL (12.0-15.0); Immature Granulocyte Absolute 0.04 K/mm3 (0.00-0.031); Immature Granulocyte Percent A 0.6 % (0-0.5); Lymphocytes Percent Auto 31.9 % (18.3-44.2); Mean Corpuscular HGB Conc 32.3 g/dl (32-36); Mean Corpuscular Hemoglobin 30.6 pg (26-34); Mean Corpuscular Volume 94.8 fl (80-100); Mean Platelet Volume 11.3 fl (7.4-10.4); Monocytes Absolute Auto 0.6 K/mm3 (0.1-0.6); Monocytes Percent Auto 9.1 % (2.6-8.5); Neutrophils Absolute Auto 3.5 K/mm3 (1.3-6.7); Neutrophils Percent Auto 52.9 % (45.5-73.1); Platelet Count Result 134 k/mm3 (150-375); Red Blood Count 3.43 M/mm3 (4.2-5.4); Red Cell Distribution Width 13.2 % (11.5-14.5); White Blood Count 6.6 K/mm3 (4.5-10.0)
[2024-09-05 05:46] LABS: Alanine Aminotransferase 22 U/L (6-35); Albumin Level 3.2 g/dL (3.5-5.1); Alkaline Phosphatase 79 U/L (38-126); Anion Gap 4 mmol/L (4-12); Aspartate Amino Transferase 31 U/L (14-36); Bilirubin,Total 0.7 mg/dL (0.2-1.3); Blood Urea Nitrogen 34 mg/dL (7-17); Calcium 8.9 mg/dL (8.4-10.2); Carbon Dioxide 30 mmol/L (22-30); Chloride 102 mmol/L (98-107); Estimated CRCL calculation 27 ml/min; Estimated Glomerular Filt Rate 39; Glucose 102 mg/dL (65-110); Magnesium 2.2 mg/dL (1.6-2.3); Potassium 3.9 mmol/L (3.4-5.0); Sodium 136 mmol/L (137-145)
[2024-09-05] MEDS: PANTOPRAZOLE 40 MG TABLET PO (09:11)
[2024-09-05] MEDS: OPTI-GEN TAB 1 TABLET PO ×2 (09:11→17:44)
[2024-09-05] MEDS: GABAPENTIN 300 MG CAPSULE PO ×3 (09:11→17:44)
[2024-09-05] MEDS: APIXABAN 5 MG TABLET PO ×2 (09:11→19:33)
--- NOTE | 2024-09-05 14:34 | P.PNIM_ITS ---
Progress Note: A&P Assessment and Plan (1) Stroke: Code(s): I63.9 - Cerebral infarction, unspecified Status: Acute Assessment and Plan: Recent complaints of impaired gait and fall. Patient was seen at two different OSH for generalized weakness. * CT head showed no acute intracranial hemorrhage or suspicious mass effect. There are findings suggesting prior cerebral infarct within the distribution of the right posterior cerebral artery. * Would do CTA head and neck but CrCl is not reportable, GFR 36, Cr 1.4 * Brain MRI pending * Echo ordered and pending * Lipid panel 89, hemoglobin A1c 6.5% * Changed from lovastatin 20 mg to atorvastatin 40 mg, Eliquis to continue * Speech therapy to evaluate swallow. Diet to follow * Neurology has been consulted, recs are appreciated 09/05/24: * MRI with Acute infarcts involving the right thalamus and right temporal occipital region. * LT sided weakness * Speech cleared for diet * Echo still pending * Added ASA and Plavix (2) Gait disturbance: Code(s): R26.9 - Unspecified abnormalities of gait and mobility Status: Acute Assessment and Plan: * Secondary to Acute CVA and UTI * PT, OT have been consulted * Fall precautions (3) UTI (urinary tract infection): Code(s): N39.0 - Urinary tract infection, site not specified Status: Acute Assessment and Plan: UA concerning for infection with positive nitrates and leukocyte esterase with 4+ bacteria. * Uncomplicated * Urine culture pending * Patient received dose of Keflex in the emergency room * Started on Rocephin IV pending culture and sensitivities Plan Code status: Full code per patient DVT prophylaxis: Eliquis Stress ulcer prophylaxis: NA PT/OT notes: PT/OT pending Disposition: Patient continues admission to the medical unit for acute CVA and UTI PT OT to evaluate speech cleared. Pending recommendations patient will likely return back to [facility]. Time Spent With Patient Time with patient: 15 - 25 minutes Subjective Date/time seen: 09/05/24 14:34 Interval history: Patient is an 84-year-old female continues admission to the medical unit for treatment acute stroke and UTI. 09/05/24: Assumed Care Patient no reported no acute issues, denied CP, SOB, N/V, dizziness, visual impairment, or difficulty with urination or defecation. Review of Systems Review of Systems: All systems reviewed & are unremarkable except as noted in HPI and below Exam Narrative: General: appears comfortable, in no acute distress Respiratory: breathing is unlabored with even chest rise/fall, lungs are clear without wheezing, rhonchi, and crackles Cardiovascular: Rate and rhythm regular, normal s1s2, no murmur Abdomen: Soft, round, non-tender, active bowel sounds Extremities: No cyanosis, edema, clubbing. Pulses 2/2. 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, left lower extremity weakness, PERRLA, Skin: Warm, dry, intact Objective Data Vital Signs Vital Signs: Vital Signs - 24 hr 09/04/24 14:54 09/04/24 20:00 09/04/24 21:35 Temperature 97.6 F Pulse Rate 72 85 Respiratory Rate 18 Blood Pressure 107/60 Pulse Oximetry 92 Oxygen Delivery Room Air 09/05/24 00:00 09/05/24 04:00 09/05/24 06:00 Temperature 97.8 F Pulse Rate 74 61 67 Respiratory Rate 18 Blood Pressure 129/60 Pulse Oximetry 93 Oxygen Delivery 09/05/24 08:00 09/05/24 08:00 09/05/24 12:00 Temperature Pulse Rate 66 63 Respiratory Rate Blood Pressure Pulse Oximetry Oxygen Delivery Room Air 09/05/24 08:17 09/05/24 14:16 Temperature 98.1 F Pulse Rate 67 Respiratory Rate 15 Blood Pressure 148/44 H Pulse Oximetry 92 94 Oxygen Delivery Room Air Intake/Output Intake/Output: Intake & Output 09/02/24 09/03/24 09/04/24 09/05/24 23:59 23:59 23:59 23:59 Intake Total 465 510 Balance 465 510 Meds/Results Medications: Active Medications Generic Name Dose Route Start Last Admin Trade Name Freq PRN Reason Stop Dose Admin Apixaban 5 mg 09/04/24 09:00 09/05/24 09:11 Apixaban 5 Mg Tablet PO 5 mg Q12HR VIRAJ Administration Atorvastatin Calcium 40 mg 09/04/24 21:00 09/04/24 20:35 Atorvastatin 40 Mg Tablet PO 40 mg HS VIRAJ Administration Donepezil HCl 5 mg 09/04/24 21:00 09/04/24 20:35 Donepezil Hcl 5 Mg Tablet PO 5 mg HS VIRAJ Administration Gabapentin 300 mg 09/04/24 09:00 09/05/24 13:49 Gabapentin 300 Mg Capsule PO 300 mg TID VIRAJ Administration Ceftriaxone Sodium 1 gm in 50 mls @ 100 mls/hr 09/04/24 09:00 09/05/24 09:41 Rocephin 1 Gm/Ns 50 Ml IVPB Infused Q24H VIRAJ Infusion Multivitamins/Minerals 1 tablet 09/04/24 09:00 09/05/24 09:11 Opti-Gen Tab PO 10/04/24 08:59 1 tablet BID VIRAJ Administration Pantoprazole Sodium 40 mg 09/04/24 09:00 09/05/24 09:11 Pantoprazole 40 Mg Tablet PO 10/04/24 08:59 40 mg DAILY VIRAJ Administration Perflutren Lipid Microsphere 0 ml 09/04/24 09:43 Perflutren Lipid Microspheres 1.5 Ml Vial Diluted To 10 Ml Total Volume IV PUSH 09/07/24 09:44 ONCE PRN adequate visualization Protocol Radiology Results: ITS Impressions Head CT 09/03/24 21:58 Impression: No acute intracranial hemorrhage or suspicious mass effect. Findings suggesting prior cerebral infarction within the distribution of the right posterior cerebral artery, as detailed above. Inflammatory sinus disease. Chest X-Ray 09/04/24 06:03 Impression: Focal left lower lobe atelectasis versus pneumonia. Correlate clinically. Brain MRI 09/04/24 15:58 IMPRESSION: 1. Acute infarcts involving the right thalamus and right temporal occipital region. Labs Labs: Laboratory Results - last 24 hr 09/05/24 05:22 WBC 6.6 RBC 3.43 L Hgb 10.5 L Hct 32.5 L MCV 94.8 MCH 30.6 MCHC 32.3 RDW 13.2 Plt Count 134 L MPV 11.3 H Immature Gran % (Auto) 0.6 H Neut % (Auto) 52.9 Lymph % (Auto) 31.9 [place] % (Auto) 9.1 H Eos % (Auto) 4.6 H Baso % (Auto) 0.9 Lymph # (Auto) 2.10 [place] # (Auto) 0.6 Eos # (Auto) 0.3 Baso # (Auto) 0.1 Abs Immat Gran (auto) 0.04 H Absolute Neuts (auto) 3.5 Absolute Nucleated RBC 0.000 Nucleated RBC % 0.0 Sodium 136 L Potassium 3.9 Chloride 102 Carbon Dioxide 30 Anion Gap 4 BUN 34 H Creatinine 1.30 H Estim Creat Clear Calc 27 Estimated GFR 39 L Glucose 102 Calcium 8.9 Magnesium 2.2 Total Bilirubin 0.7 AST 31 ALT 22 Alkaline Phosphatase 79 Total Protein 7.0 Albumin 3.2 L Quality VTE Prophylaxis VTE prophylaxis: pharmacologic ordered -Patient's previous records reviewed on admission -ER notes reviewed in detail on admission -discussed all findings and current treatment plan with patient/Family/POA -Consultations reviewed for recommendations -Patient's disposition for safe discharge discussed with case sealer Dictation performed by [employer] direct speech recognition software, therefore reheater helper variants and typographical errors may occur. Hospitalist MIPS Advance Care Plan I have confirmed that the patient's Advanced Care Plan is present, code status is documented, or surrogate decision maker is listed in patient medical record.: Yes Medication Reconciliation I have utilized all available resources to obtain, update and review the patients current medications (includes all prescriptions, OTC, herbals, cannabis, and nutritional supplements).: Yes The patient is not eligible for med reconciliation; the patient is in a emergent medical situation where delaying treatment would jeopardize the patients h ealth.: No
[2024-09-05] MEDS: DONEPEZIL HCL 5 MG TABLET PO (19:33)
[2024-09-05] MEDS: ATORVASTATIN 40 MG TABLET PO (19:33)
[2024-09-06] VITALS (10 sets, daily range): BP systolic 124–177; BP diastolic 50–62; PULSE 60–78; RESP 18; TEMP 36.4–36.8; O2SAT 95–96
[2024-09-06 05:59] LABS: Basophils Absolute Auto 0.1 K/mm3 (0.0-0.1); Basophils Percent Auto 0.8 % (0.2-1.2); Eosinophils Absolute Auto 0.4 K/mm3 (0-0.3); Eosinophils Percent Auto 5.3 % (0-4.4); Hematocrit 32.4 % (37.0-47.0); Hemoglobin 10.7 g/dL (12.0-15.0); Immature Granulocyte Absolute 0.03 K/mm3 (0.00-0.031); Immature Granulocyte Percent A 0.5 % (0-0.5); Lymphocytes Absolute Auto 2.13 K/mm3 (0.9-3.2); Lymphocytes Percent Auto 32.3 % (18.3-44.2); Mean Corpuscular Hemoglobin 31.3 pg (26-34); Mean Corpuscular Volume 94.7 fl (80-100); Mean Platelet Volume 10.7 fl (7.4-10.4); Monocytes Absolute Auto 0.6 K/mm3 (0.1-0.6); Monocytes Percent Auto 8.6 % (2.6-8.5); Neutrophils Absolute Auto 3.5 K/mm3 (1.3-6.7); Neutrophils Percent Auto 52.5 % (45.5-73.1); Platelet Count Result 144 k/mm3 (150-375); Red Blood Count 3.42 M/mm3 (4.2-5.4); Red Cell Distribution Width 13.2 % (11.5-14.5); White Blood Count 6.6 K/mm3 (4.5-10.0)
[2024-09-06 06:13] LABS: Alanine Aminotransferase 21 U/L (6-35); Albumin Level 3.3 g/dL (3.5-5.1); Alkaline Phosphatase 85 U/L (38-126); Anion Gap 4 mmol/L (4-12); Aspartate Amino Transferase 32 U/L (14-36); Bilirubin,Total 0.5 mg/dL (0.2-1.3); Blood Urea Nitrogen 30 mg/dL (7-17); Carbon Dioxide 30 mmol/L (22-30); Chloride 102 mmol/L (98-107); Estimated CRCL calculation 25 ml/min; Estimated Glomerular Filt Rate 36; Glucose 125 mg/dL (65-110); Magnesium 2.1 mg/dL (1.6-2.3); Potassium 3.7 mmol/L (3.4-5.0); Sodium 136 mmol/L (137-145)
[2024-09-06] MEDS: GABAPENTIN 300 MG CAPSULE PO ×3 (08:53→16:33)
[2024-09-06] MEDS: OPTI-GEN TAB 1 TABLET PO ×2 (08:53→16:33)
[2024-09-06] MEDS: PANTOPRAZOLE 40 MG TABLET PO (08:53)
[2024-09-06] MEDS: ASPIRIN 81 MG ENTERIC TABLET PO (08:53)
[2024-09-06] MEDS: APIXABAN 5 MG TABLET PO ×2 (08:53→20:08)
[2024-09-06] MEDS: CLOPIDOGREL BISULFATE 75 MG TABLET PO (08:53)
--- NOTE | 2024-09-06 14:19 | P.PNIM_ITS ---
Progress Note: A&P Assessment and Plan (1) Stroke: Code(s): I63.9 - Cerebral infarction, unspecified Status: Acute Assessment and Plan: Recent complaints of impaired gait and fall. Patient was seen at two different OSH for generalized weakness. * CT head showed no acute intracranial hemorrhage or suspicious mass effect. There are findings suggesting prior cerebral infarct within the distribution of the right posterior cerebral artery. * Would do CTA head and neck but CrCl is not reportable, GFR 36, Cr 1.4 * Brain MRI pending * Echo ordered and pending * Lipid panel 89, hemoglobin A1c 6.5% * Changed from lovastatin 20 mg to atorvastatin 40 mg, Eliquis to continue * Speech therapy to evaluate swallow. Diet to follow * Neurology has been consulted, recs are appreciated 09/05/24: * MRI with Acute infarcts involving the right thalamus and right temporal occipital region. * LT sided weakness * Speech cleared for diet * Echo still pending * Added ASA and Plavix (2) Gait disturbance: Code(s): R26.9 - Unspecified abnormalities of gait and mobility Status: Acute Assessment and Plan: * Secondary to Acute CVA and UTI * PT, OT have been consulted * Fall precautions (3) UTI (urinary tract infection): Code(s): N39.0 - Urinary tract infection, site not specified Status: Acute Assessment and Plan: UA concerning for infection with positive nitrates and leukocyte esterase with 4+ bacteria. * Uncomplicated * Urine culture pending * Patient received dose of Keflex in the emergency room * Started on Rocephin IV pending culture and sensitivities 09/06/24 * [facility] waiting on sensitivities will transition to p.o. if able Plan Code status: Full code per patient DVT prophylaxis: Vi Stress ulcer prophylaxis: NA PT/OT notes: PT/OT pending Disposition: Patient continues admission to the medical unit for acute CVA and UTI PT OT to evaluate speech cleared. Pending recommendations patient will likely return back to [facility] but will need PT/OT Time Spent With Patient Time with patient: 15 - 25 minutes Subjective Date/time seen: 09/06/24 14:19 Interval history: Patient is an 84-year-old female continues admission to the medical unit for treatment acute stroke and UTI. 09/06/24: Assumed Care Patient up in chair still with generalized weakness but improving, denies any CP, SOB, Dizziness, tingling or urinary problems. Review of Systems Review of Systems: All systems reviewed & are unremarkable except as noted in HPI and below Exam Narrative: General: appears comfortable, in no acute distress Respiratory: breathing is unlabored with even chest rise/fall, lungs are clear without wheezing, rhonchi, and crackles Cardiovascular: Rate and rhythm regular, normal s1s2, no murmur Abdomen: Soft, round, non-tender, active bowel sounds Extremities: No cyanosis, edema, clubbing. Pulses 2/2. 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, left lower extremity weakness, PERRLA, Skin: Warm, dry, intact Objective Data Vital Signs Vital Signs: Vital Signs - 24 hr 09/05/24 19:34 09/05/24 20:00 09/06/24 00:00 Temperature 98.2 F Pulse Rate 68 60 66 Respiratory Rate 20 Blood Pressure 149/73 H Pulse Oximetry 95 Oxygen Delivery 09/06/24 04:00 09/06/24 05:53 09/06/24 08:05 Temperature 98.1 F Pulse Rate 67 78 60 Respiratory Rate 18 Blood Pressure 177/61 H Pulse Oximetry 95 Oxygen Delivery 09/06/24 08:53 09/06/24 12:05 09/06/24 13:51 Temperature 98.2 F Pulse Rate 66 64 Respiratory Rate 18 18 Blood Pressure 145/50 H Pulse Oximetry 95 95 Oxygen Delivery Room Air Intake/Output Intake/Output: Intake & Output 09/03/24 09/04/24 09/05/24 09/06/24 23:59 23:59 23:59 23:59 Intake Total 465 1110 560 Balance 465 1110 560 Meds/Results Medications: Active Medications Generic Name Dose Route Start Last Admin Trade Name Freq PRN Reason Stop Dose Admin Apixaban 5 mg 09/04/24 09:00 09/06/24 08:53 Apixaban 5 Mg Tablet PO 5 mg Q12HR VIRAJ Administration Aspirin 81 mg 09/06/24 09:00 09/06/24 08:53 Aspirin 81 Mg Enteric Tablet PO 81 mg QAM VIRAJ Administration Atorvastatin Calcium 40 mg 09/04/24 21:00 09/05/24 19:33 Atorvastatin 40 Mg Tablet PO 40 mg HS VIRAJ Administration Clopidogrel Bisulfate 75 mg 09/06/24 09:00 09/06/24 08:53 Clopidogrel Bisulfate 75 Mg Tablet PO 75 mg QAM VIRAJ Administration Donepezil HCl 5 mg 09/04/24 21:00 09/05/24 19:33 Donepezil Hcl 5 Mg Tablet PO 5 mg HS VIRAJ Administration Gabapentin 300 mg 09/04/24 09:00 09/06/24 12:32 Gabapentin 300 Mg Capsule PO 300 mg TID VIRAJ Administration Ceftriaxone Sodium 1 gm in 50 mls @ 100 mls/hr 09/04/24 09:00 09/06/24 09:23 Rocephin 1 Gm/Ns 50 Ml IVPB Infused Q24H VIRAJ Infusion Multivitamins/Minerals 1 tablet 09/04/24 09:00 09/06/24 08:53 Opti-Gen Tab PO 10/04/24 08:59 1 tablet BID VIRAJ Administration Pantoprazole Sodium 40 mg 09/04/24 09:00 09/06/24 08:53 Pantoprazole 40 Mg Tablet PO 10/04/24 08:59 40 mg DAILY VIRAJ Administration Perflutren Lipid Microsphere 0 ml 09/04/24 09:43 Perflutren Lipid Microspheres 1.5 Ml Vial Diluted To 10 Ml Total Volume IV PUSH 09/07/24 09:44 ONCE PRN adequate visualization Protocol Radiology Results: ITS Impressions Head CT 09/03/24 21:58 Impression: No acute intracranial hemorrhage or suspicious mass effect. Findings suggesting prior cerebral infarction within the distribution of the right posterior cerebral artery, as detailed above. Inflammatory sinus disease. Chest X-Ray 09/04/24 06:03 Impression: Focal left lower lobe atelectasis versus pneumonia. Correlate clinically. Brain MRI 09/04/24 15:58 IMPRESSION: 1. Acute infarcts involving the right thalamus and right temporal occipital region. Labs Labs: Laboratory Results - last 24 hr 09/06/24 05:42 WBC 6.6 RBC 3.42 L Hgb 10.7 L Hct 32.4 L MCV 94.7 MCH 31.3 MCHC 33.0 RDW 13.2 Plt Count 144 L MPV 10.7 H Immature Gran % (Auto) 0.5 Neut % (Auto) 52.5 Lymph % (Auto) 32.3 [place] % (Auto) 8.6 H Eos % (Auto) 5.3 H Baso % (Auto) 0.8 Lymph # (Auto) 2.13 [place] # (Auto) 0.6 Eos # (Auto) 0.4 H Baso # (Auto) 0.1 Abs Immat Gran (auto) 0.03 Absolute Neuts (auto) 3.5 Absolute Nucleated RBC 0.000 Nucleated RBC % 0.0 Sodium 136 L Potassium 3.7 Chloride 102 Carbon Dioxide 30 Anion Gap 4 BUN 30 H Creatinine 1.40 H Estim Creat Clear Calc 25 Estimated GFR 36 L Glucose 125 H Calcium 9.0 Magnesium 2.1 Total Bilirubin 0.5 AST 32 ALT 21 Alkaline Phosphatase 85 Total Protein 7.0 Albumin 3.3 L Quality VTE Prophylaxis VTE prophylaxis: pharmacologic ordered -Patient's previous records reviewed on admission -ER notes reviewed in detail on admission -discussed all findings and current treatment plan with patient/Family/POA -Consultations reviewed for recommendations -Patient's disposition for safe discharge discussed with rehabilitation caseworker Dictation performed by [employer] direct speech recognition software, therefore contact center professional variants and typographical errors may occur. Hospitalist MIPS Advance Care Plan I have confirmed that the patient's Advanced Care Plan is present, code status is documented, or surrogate decision maker is listed in patient medical record.: Yes Medication Reconciliation I have utilized all available resources to obtain, update and review the patients current medications (includes all prescriptions, OTC, herbals, cannabis, and nutritional supplements).: Yes The patient is not eligible for med reconciliation; the patient is in a emergent medical situation where delaying treatment would jeopardize the patients health.: No
[2024-09-06] MEDS: ATORVASTATIN 40 MG TABLET PO (20:08)
[2024-09-06] MEDS: DONEPEZIL HCL 5 MG TABLET PO (20:08)
[2024-09-07] VITALS: PULSE 63
[2024-09-07 04:00] VITALS: PULSE 56
[2024-09-07 05:47] VITALS: BP 127/50; PULSE 60; RESP 16; TEMP 37.1; O2SAT 94
[2024-09-07 06:19] LABS: Basophils Absolute Auto 0.1 K/mm3 (0.0-0.1); Eosinophils Absolute Auto 0.3 K/mm3 (0-0.3); Eosinophils Percent Auto 5.1 % (0-4.4); Hemoglobin 10.9 g/dL (12.0-15.0); Immature Granulocyte Absolute 0.04 K/mm3 (0.00-0.031); Immature Granulocyte Percent A 0.6 % (0-0.5); Lymphocytes Absolute Auto 2.15 K/mm3 (0.9-3.2); Mean Corpuscular HGB Conc 32.1 g/dl (32-36); Mean Corpuscular Hemoglobin 30.5 pg (26-34); Mean Corpuscular Volume 95.2 fl (80-100); Monocytes Absolute Auto 0.6 K/mm3 (0.1-0.6); Monocytes Percent Auto 8.5 % (2.6-8.5); Neutrophils Absolute Auto 3.6 K/mm3 (1.3-6.7); Neutrophils Percent Auto 52.8 % (45.5-73.1); Platelet Count Result 136 k/mm3 (150-375); Red Blood Count 3.57 M/mm3 (4.2-5.4); Red Cell Distribution Width 13.1 % (11.5-14.5); White Blood Count 6.7 K/mm3 (4.5-10.0)
[2024-09-07 06:32] LABS: Alanine Aminotransferase 24 U/L (6-35); Albumin Level 3.3 g/dL (3.5-5.1); Alkaline Phosphatase 78 U/L (38-126); Anion Gap 4 mmol/L (4-12); Aspartate Amino Transferase 34 U/L (14-36); Bilirubin,Total 0.5 mg/dL (0.2-1.3); Blood Urea Nitrogen 32 mg/dL (7-17); Carbon Dioxide 30 mmol/L (22-30); Chloride 102 mmol/L (98-107); Estimated CRCL calculation 27 ml/min; Estimated Glomerular Filt Rate 39; Glucose 114 mg/dL (65-110); Potassium 4.1 mmol/L (3.4-5.0); Sodium 136 mmol/L (137-145)
[2024-09-07 08:00] VITALS: PULSE 65
[2024-09-07] MEDS: OPTI-GEN TAB 1 TABLET PO (09:22)
[2024-09-07] MEDS: APIXABAN 5 MG TABLET PO (09:22)
[2024-09-07] MEDS: CLOPIDOGREL BISULFATE 75 MG TABLET PO (09:23)
[2024-09-07] MEDS: PANTOPRAZOLE 40 MG TABLET PO (09:23)
[2024-09-07] MEDS: CEFDINIR 300 MG CAPSULE PO (09:23)
[2024-09-07] MEDS: ASPIRIN 81 MG ENTERIC TABLET PO (09:23)
[2024-09-07] MEDS: GABAPENTIN 300 MG CAPSULE PO ×2 (09:23→12:56)
--- NOTE | 2024-09-07 10:59 | P.DS_ITS ---
DS: Admitting Diagnosis Discharge Date 09/07/2024 Admitting Diagnosis Acute CVA DS: Discharge Diagnosis Discharge Diagnosis (1) Stroke: Code(s): I63.9 - Cerebral infarction, unspecified Status: Acute (2) Gait disturbance: Code(s): R26.9 - Unspecified abnormalities of gait and mobility Status: Acute (3) UTI (urinary tract infection): Code(s): N39.0 - Urinary tract infection, site not specified Status: Acute Plan Disposition: Discharged to Assisted living with PT/OT DS: Summary Hospital Course Reason for hospitalization: Acute CVA Hospital Course: Patient was an 84-year-old female who initially presented to the emergency department with complaints of gait disturbances and generalized weakness initial CT of head did show possible stroke the right posterior cerebral artery and possible urinary tract infection. Patient was then admitted to the medical unit for further evaluation and treatment for possible acute stroke with consult to Neurology. Patient with LT sided weakness and LE drift and MRI was performed and showed and an acute infracts of the right thalamus and rt temporal occipital region. PT/OT/ST ordered no dysphagia or risk of aspiration, PT recommending PT/OT to be continued at her assisted living progress well with strength training. Patient seen by neurology who recommended increase of statin to 40mg, add ASA and to continue her eliquis. Echo was also completed the showed no [id number] shunting and LVEF of 65-70%. Patient was also found to have urinary tract infection culture grew E coli she initially had been placed on Rocephin and transitioned to oral cefdinir. Patient with overall improvement to generalized weakness and was progressing with PT. Patient was discharged back to assisted living with orders for continued PT /OT. Status at Discharge Functional status at discharge: uses cane/walker Time Spent with Patient Time attestation: Total time spent providing and/or coordinating discharge services: Time spent: Greater than 30 minutes Exam Narrative: General: appears comfortable, in no acute distress Respiratory: breathing is unlabored with even chest rise/fall, lungs are clear without wheezing, rhonchi, and crackles Cardiovascular: Rate and rhythm regular, normal s1s2, no murmur Abdomen: Soft, round, non-tender, active bowel sounds Extremities: No cyanosis, edema, clubbing. Pulses 2/2. Neuro: A&O x 2-3, LT sided weakness Skin: Warm, dry, intact DS: Data Data Completed and Pending Labs on day of discharge: Labs from last 24 hours 09/07/24 09/07/24 06:12 06:11 WBC 6.7 RBC 3.57 L Hgb 10.9 L Hct 34.0 L MCV 95.2 MCH 30.5 MCHC 32.1 RDW 13.1 Plt Count 136 L MPV 11.0 H Immature Gran % (Auto) 0.6 H Neut % (Auto) 52.8 Lymph % (Auto) 32.0 [place] % (Auto) 8.5 Eos % (Auto) 5.1 H Baso % (Auto) 1.0 Lymph # (Auto) 2.15 [place] # (Auto) 0.6 Eos # (Auto) 0.3 Baso # (Auto) 0.1 Abs Immat Gran (auto) 0.04 H Absolute Neuts (auto) 3.6 Absolute Nucleated RBC 0.000 Nucleated RBC % 0.0 Sodium 136 L Potassium 4.1 Chloride 102 Carbon Dioxide 30 Anion Gap 4 BUN 32 H Creatinine 1.30 H Estim Creat Clear Calc 27 Estimated GFR 39 L Glucose 114 H Calcium 9.0 Magnesium 2.0 Total Bilirubin 0.5 AST 34 ALT 24 Alkaline Phosphatase 78 Total Protein 7.0 Albumin 3.3 L Imaging Radiologist's impression: Radiology Results: ITS Impressions Head CT 09/03/24 21:58 Impression: No acute intracranial hemorrhage or suspicious mass effect. Findings suggesting prior cerebral infarction within the distribution of the right posterior cerebral artery, as detailed above. Inflammatory sinus disease. Chest X-Ray 09/04/24 06:03 Impression: Focal left lower lobe atelectasis versus pneumonia. Correlate clinically. Brain MRI 09/04/24 15:58 IMPRESSION: 1. Acute infarcts involving the right thalamus and right temporal occipital region. Discharge Plan Discharge Attending physician on discharge: Ahmet Tellez Consulting providers: Michi Davison Discharging Clinician: Petrona Campbell Anticipated Discharge Date/Time: 09/07/24 10:50 Patient Disposition: NH Shelter/Asst Living Activity: may shower and as tolerated Diet: heart healthy Discharge Instructions: You are being discharged after evaluation and treatment for Stroke and UTI. I have increased your Atorvastatin to 40mg daily as well as adding Plavix and aspirin daily. You will continue with physical and occupational therapy outpatient for continued strength training. Please call to scheduled a follow- up appointment with the neurologist his information is provided as well as a follow-up with Primary care physician in 2-4 weeks. Monitor for signs of Stroke (FAST) and seek medical attention if any symptoms return. I have attached stroke education to be reviewed. You also were found to have and UTI from [facility] and I have prescribed an oral antibiotic please take as prescribed. Practice good hygiene and make sure to get adequate hydration. How can you care for yourself at home? ? Keep track of any new symptoms or changes in your symptoms. ? Rest until you feel better. ? Be safe with medicines. Take your medicines exactly as prescribed. Call your doctor if you think you are having a problem with your medicine. ? Do not drive after taking a prescription pain medicine. ? Ensure to follow-up with primary care physician as indicated and provide updated medication list provided to you at discharge. When should you call for help? Call 911 anytime you think you may need emergency care. For example, call if: ? You passed out (lost consciousness). Call your doctor now or seek immediate medical care if: ? You have new symptoms like fever, difficulty breathing, Chest pain, vomiting, or rash. ? You have new or different pain. ? You are confused and are having trouble thinking clearly. ? Your symptoms are getting worse. Watch closely for changes in your health, and be sure to contact your doctor if: ? You do not get better as expected. Patient Instructions: Antibiotic Form, Apixaban (By mouth), Urinary Tract Infection in Women (DC), Pain Management (DC), Self Care Measures After a Stroke (DC), Stroke (DC) Patient Language: Turkmen Stand Alone Forms: General Discharge Information Follow-up/Referrals: Michi Davison MD [Physician] - Call for Appointment Christopher,Pedro Montalvo MD [Primary Care Provider] - 2 Weeks Discharge Medications: New atorvastatin 40 mg Tablet 40 mg PO HS Qty: 30 0RF clopidogrel 75 mg Tablet 75 mg PO QAM Qty: 30 0RF aspirin 81 mg Tablet,Delayed Release (Dr/Ec) 81 mg PO QAM Qty: 30 0RF cefdinir 300 mg Capsule 300 mg PO DAILY Qty: 3 0RF Continued donepezil [Aricept] 5 mg Tablet 5 mg PO HS loperamide 2 mg Tablet 2 mg PO Q4H PRN (Reason: Diarrhea) Rx Instructions: administer after each loose stool until symptoms controlled; do not exceed 8 mg per 24 hrs guaifenesin 100 mg/5 mL Liquid 200 mg PO Q4H PRN (Reason: Cough) losartan 25 mg tablet 25 mg PO BID ibuprofen 200 mg Tablet 200 mg PO Q8H PRN (Reason: Pain) gabapentin 300 mg capsule 300 mg PO TID omeprazole 20 mg Capsule,Delayed Release(Dr/Ec) 20 mg PO DAILY cyanocobalamin (vitamin B-12) 1,000 mcg/mL Syringe 1,000 mcg DAILY Rx Instructions: inject 1ml intramuscularly one time a day every 30 days for supplement r/t anemia omega-3 fatty acids-vitamin E 1,000 mg Capsule 1 cap PO DAILY hydrochlorothiazide 12.5 mg tablet 12.5 mg PO DAILY Eliquis 5 mg tablet 5 mg PO BID PreserVision AREDS 1 tablet PO BID Discontinued lovastatin 20 mg tablet 20 mg PO QPM Date of admission: 09/05/24 08:50 Primary Care Provider: Christopher,Pedro Montalvo Admitting Provider: Blaise Rojas V. Attending physician on admission: Petrona Campbell Condition: Improved Quality VTE Prophylaxis VTE prophylaxis: pharmacologic ordered -Patient's previous records reviewed on admission -ER notes reviewed in detail on admission -discussed all findings and current treatment plan with patient/Family/POA -Consultations reviewed for recommendations -Patient's disposition for safe discharge discussed with manager case Dictation performed by [employer] direct speech recognition software, therefore ediscovery project manager variants and typographical errors may occur. Hospitalist MIPS Heart Failure (Exclusion) Patient has history of Heart Transplant or Left Ventricular Assistive Device?: No IF YES, STOP HERE Heart Failure (Qualifier) Patient has current or prior documentation of LVEF less than or equal to 40%, or mod/servere depressed LVSF?: No IF NO, STOP HERE
[2024-09-07 12:00] VITALS: PULSE 69
== END 2024-09-07 14:09 | DRG 65 ==
LOC: ANHED 09-04 01:38 → ANH3MEDSUR 09-04 03:02 → ANH3MED 09-04 09:28
PROVIDERS: Nurse Practitioner Acute Care; Admitting Provider Internal Medicine; Emergency Provider Emergency Medicine; PCP Family Medicine; Visit Provider Internal Medicine
DX: I63.9 Cerebral infarction, unspecified (principal); G81.94 Hemiplegia, unspecified affecting left nondominant side; N39.0 Urinary tract infection, site not specified; B96.20 Unspecified Escherichia coli [E. coli] as the cause of diseases classified elsewhere; W18.30XA Fall on same level, unspecified, initial encounter; E66.9 Obesity, unspecified; F02.80 Dementia in other diseases classified elsewhere, unspecified severity, without behavioral disturbance, psychotic disturbance, mood disturbance, and anxiety; G20.A1 Parkinson's disease without dyskinesia, without mention of fluctuations; I10 Essential (primary) hypertension; R26.9 Unspecified abnormalities of gait and mobility; Z87.891 Personal history of nicotine dependence; Z79.01 Long term (current) use of anticoagulants; Z88.0 Allergy status to penicillin; Z20.822 Contact with and (suspected) exposure to COVID-19
CPT/HCPCS: 36415; 70450; 70553; 71045; 80053; 80061; 81001; 83036; 83735; 85025; 85610; 85730; 87086; 87186; 87637; 92610; 93306; 96365; 96375; 97110; 97116; 97161; 97166; 97530; 97535; 99285; A9270; A9577; G0378; J0696